=== PATIENT | male | born 1995 | race Two or more races ===

== ENCOUNTER 2018-02-03 23:32 | Emergency (ER) | payer BC, OTHER ==
[~2018-02-03] VITALS: Ht 185.4 cm; Wt 90.7 kg
--- NOTE | 2018-02-04 00:12 | Emergency Room Report ---
History of Present Illness General Chief Complaint: Pain Source: Patient Present Illness HPI Patient was jogging when he slipped and fell on the right elbow about one hour ago pain is 10 out of 10 localized to the elbow Denies any wrist pain or shoulder pain Denies any head trauma denies any chest pain or shortness of breath Pain is worse with movement better with rest Allergies: Coded Allergies: No Known Allergies (Unverified , 02/03/18) Patient History Past Medical History: see triage record Pertinent Family History: none Reviewed Nursing Documentation: PMH: Agreed; PSxH: Agreed Nursing Documentation-PMH Past Medical History: No Stated History Review of Systems All Other Systems: negative except mentioned in HPI Physical Exam Vital Signs Date Time Temp Pulse Resp B/P (MAP) Pulse Ox O2 Delivery O2 Flow Rate FiO2 02/03/18 23:47 97.9 84 15 106/53 96 Room Air 97.9 Sp02 EP Interpretation: reviewed, normal General Appearance: well appearing, no apparent distress Head: normocephalic, atraumatic Eyes: bilateral eye PERRL, bilateral eye EOMI ENT: normal pharynx Neck: full range of motion, supple Respiratory: chest non-tender, lungs clear Cardiovascular #1: regular rate, rhythm, no edema Gastrointestinal: non tender, soft Musculoskeletal: swelling - To the right elbow, neurovascularly intact distally and proximally Skin: other - Swelling at the right elbow Lymphatic: no adenopathy Procedures Splinting Splinting : Consent: Verbal Location: Right elbow Hand-Made Type: plaster Splint: poserior short Pre-Proc Neuro Vasc Exam: normal Post-Proc Neuro Vasc Exam: normal Patient Tolerated: Well Complications: None Medical Decision Making Diagnostic Impression: Primary Impression: Elbow contusion ER Course X-ray imaging does not reveal any obvious acute fractures given the clinical swelling however and discomfort patient did have splint applied Will have close outpatient follow-up and return with any concerns or changes Patient will also return for repeat imaging of his pain is not improved and not able to follow-up with primary physician Other X-Ray Diagnostic Results Other X-Ray Diagnostic Results : X-Ray ordered: Right elbow # of Views/Limited Vs Complete: 4 View Indication: Pain EP Interpretation: Yes Interpretation: no dislocation, no soft tissue swelling, no fractures Impression: No acute disease Electronically Signed by: Reva Phipps DO Last Vital Signs Date Time Temp Pulse Resp B/P (MAP) Pulse Ox O2 Delivery O2 Flow Rate FiO2 02/03/18 23:47 97.9 84 15 106/53 96 Room Air 97.9 Status: improved Disposition: HOME, SELF-CARE Condition: Improved Scripts Ibuprofen* (MOTRIN*) 600 Mg Tablet 600 MG ORAL Q8H PRN for For Pain, #20 TAB 0 Refills Prov: Reva Phipps DO 02/04/18 Additional Instructions: Patient is provided with the discharge instructions notified to follow up with primary doctor in the next 2-3 days otherwise return to the er with any worsening symptoms. Please note that this report is being documented using [employer] technology. This can lead to erroneous entry secondary to incorrect interpretation by the dictating instrument. Reva Phipps DO Feb 04, 2018 00:12
[2018-02-04] MEDS ORDERED: Ketorolac 60mg Inj IM ONE (00:15)
[2018-02-04] MEDS ORDERED: HYDROcodone/Acetamin 10/325 tab ORAL ONE (00:15)
[2018-02-04] MEDS ORDERED: IBUPROFEN600 MG ORAL (01:08)
[2018-02-04 01:29] VITALS: BP 112/59
--- NOTE | 2018-02-04 11:31 | Diagnostic Imaging Report ---
Indication: Pain Findings: 3 views of the right elbow were obtained. No acute fractures, malalignment, erosions or periostitis are identified. Bone mineralization is within normal limits. Soft tissues are unremarkable. Impression: Negative examination of the elbow.
== END 2018-02-04 01:30 | disposition home or self-care (01) ==
LOC: EMR 02-04 01:25
DX: S50.01XA Contusion of right elbow, initial encounter (principal); W01.0XXA Fall on same level from slipping, tripping and stumbling without subsequent striking against object, initial encounter; Y93.9 Activity, unspecified; Y92.9 Unspecified place or not applicable
CPT/HCPCS: 29515; 96372; 99283